=== PATIENT | female | born 1935 | race Caucasian/White ===

== ENCOUNTER 2021-09-24 11:13 | Emergency (ER) | payer MEDICARE, BC ==
[~2021-09-24] VITALS: Ht 149.9 cm; Wt 76.6 kg
[~2021-09-24 11:13] MED LIST: AMLO1TAB42 PO; ATOR10TA70 PO; DABI150C PO; METF500T PO; METO50TA16 PO; NITR0.4T48 SL
[2021-09-24 12:06] VITALS: BP 143/86
[2021-09-24 14:11] LABS: BASOPHILS % (AUTO) 0.2 % (0-1); EOSINOPHILS # (AUTO) 0.1 X10'3 (0-0.9); EOSINOPHILS % (AUTO) 1.2 % (0-6); HEMATOCRIT 34.4 % (35.0-45.0); HEMOGLOBIN 11.9 g/dl (12.0-16.0); LYMPHOCYTES # (AUTO) 1.3 X10'3 (1.1-4.8); LYMPHOCYTES % (AUTO) 13.9 % (21-51); MEAN CORPUSCULAR HEMOGLOBIN 32.1 PG (27.0-31.0); MEAN CORPUSCULAR HGB CONC 34.7 g/dL (33.0-36.5); MEAN CORPUSCULAR VOLUME 92.7 FL (78-98); MEAN PLATELET VOLUME 7.8 FL (7.4-10.4); MONOCYTES # (AUTO) 0.6 X10'3 (0-0.9); MONOCYTES % (AUTO) 6.9 % (2-12); NEUTROPHILS # (AUTO) 7.2 X10'3 (1.8-7.7); NEUTROPHILS % (AUTO) 77.8 % (42-75); PLATELET COUNT 327 X10'3 (140-440); RED BLOOD COUNT 3.71 X10'6 (4.20-5.60); RED CELL DISTRIBUTION WIDTH 13.2 % (11.5-14.5); WHITE BLOOD COUNT 9.3 X10'3 (4.5-11.0)
[2021-09-24 14:27] LABS: ALANINE AMINOTRANSFERASE 17 U/L (12-78); ALBUMIN 3.4 G/DL (3.4-5.0); ALBUMIN/GLOBULIN RATIO 0.8 (1.1-1.5); ALKALINE PHOSPHATASE 76 IU/L (46-116); ANION GAP 11 (8-16); ASPARTATE AMINO TRANSFERASE 16 U/L (10-37); BLOOD UREA NITROGEN 12 MG/DL (7-18); BUN/CREATININE RATIO 16.9 (6.6-38.0); CHLORIDE 104 MMOL/L (99-107); CREATININE 0.71 MG/DL (0.40-0.90); GLUCOSE 124 MG/DL (70-104); POTASSIUM 4.3 MMOL/L (3.5-5.1); SODIUM 141 MMOL/L (135-145); TOTAL CARBON DIOXIDE 25.6 MMOL/L (24-32); TOTAL PROTEIN 7.5 G/DL (6.4-8.2); eGFR 78 ML/MIN
[2021-09-24 14:35] LABS: MAGNESIUM 1.8 MG/DL (1.5-2.4)
[2021-09-24 14:37] LABS: BILIRUBIN,TOTAL 0.9 MG/DL (0.1-1.0)
[2021-09-24] MEDS ORDERED: AZIT-83 PO ×2 (15:53)
== END 2021-09-24 16:37 | disposition home or self-care (01) ==
LOC: ER 11:15
DX: J18.9 Pneumonia, unspecified organism (principal); R60.9 Edema, unspecified; R06.02 Shortness of breath; M79.602 Pain in left arm; I48.91 Unspecified atrial fibrillation; I10 Essential (primary) hypertension; E11.9 Type 2 diabetes mellitus without complications; Z87.440 Personal history of urinary (tract) infections; Z90.89 Acquired absence of other organs; Z98.890 Other specified postprocedural states; Z60.2 Problems related to living alone; Z88.0 Allergy status to penicillin; Z79.2 Long term (current) use of antibiotics; Z79.899 Other long term (current) drug therapy
CPT/HCPCS: 36415; 71045; 80053; 83735; 83880; 84484; 85025; 93005; 99285

== ENCOUNTER 2021-11-13 15:02 | Emergency (ER) | payer MEDICARE, BC ==
[~2021-11-13] VITALS: Ht 149.9 cm; Wt 72.0 kg
[~2021-11-13 15:02] MED LIST changes: +AZIT-83 PO
[2021-11-13 15:26] VITALS: BP 121/70
[2021-11-13 15:53] LABS: BASOPHILS % (AUTO) 0.2 % (0-1); EOSINOPHILS # (AUTO) 0.6 X10'3 (0-0.9); EOSINOPHILS % (AUTO) 5.5 % (0-6); HEMOGLOBIN 11.8 g/dl (12.0-16.0); LYMPHOCYTES # (AUTO) 0.8 X10'3 (1.1-4.8); LYMPHOCYTES % (AUTO) 7.3 % (21-51); MEAN CORPUSCULAR HEMOGLOBIN 31.1 PG (27.0-31.0); MEAN CORPUSCULAR HGB CONC 34.6 g/dL (33.0-36.5); MEAN CORPUSCULAR VOLUME 89.8 FL (78-98); MEAN PLATELET VOLUME 7.6 FL (7.4-10.4); MONOCYTES # (AUTO) 0.7 X10'3 (0-0.9); MONOCYTES % (AUTO) 6.4 % (2-12); NEUTROPHILS # (AUTO) 8.4 X10'3 (1.8-7.7); NEUTROPHILS % (AUTO) 80.6 % (42-75); PLATELET COUNT 326 X10'3 (140-440); RED BLOOD COUNT 3.79 X10'6 (4.20-5.60); RED CELL DISTRIBUTION WIDTH 14.6 % (11.5-14.5); WHITE BLOOD COUNT 10.4 X10'3 (4.5-11.0)
[2021-11-13 16:08] LABS: ALANINE AMINOTRANSFERASE 17 U/L (12-78); ALBUMIN 3.4 G/DL (3.4-5.0); ALBUMIN/GLOBULIN RATIO 0.8 (1.1-1.5); ALKALINE PHOSPHATASE 79 IU/L (46-116); ANION GAP 10 (8-16); ASPARTATE AMINO TRANSFERASE 16 U/L (10-37); BILIRUBIN,TOTAL 1.1 MG/DL (0.1-1.0); BLOOD UREA NITROGEN 14 MG/DL (7-18); BUN/CREATININE RATIO 16.3 (6.6-38.0); CALCIUM 8.8 MG/DL (8.5-10.1); CHLORIDE 98 MMOL/L (99-107); CREATININE 0.86 MG/DL (0.40-0.90); GLUCOSE 142 MG/DL (70-104); POTASSIUM 4.2 MMOL/L (3.5-5.1); SODIUM 132 MMOL/L (135-145); TOTAL CARBON DIOXIDE 24.2 MMOL/L (24-32); TOTAL PROTEIN 7.5 G/DL (6.4-8.2); eGFR 63 ML/MIN
[2021-11-13] MEDS ORDERED: acyclovir 200 MG capsule PO ONE (17:25)
[2021-11-13] MEDS ORDERED: ACYC-129 PO (17:25)
--- NOTE | 2021-11-13 17:55 | NUR ---
pharmacy to deliver zovirax capsule.
== END 2021-11-13 18:30 | disposition home or self-care (01) ==
LOC: ER 15:02
DX: B01.9 Varicella without complication (principal); J02.9 Acute pharyngitis, unspecified; R50.9 Fever, unspecified; R21 Rash and other nonspecific skin eruption; R00.0 Tachycardia, unspecified; I48.91 Unspecified atrial fibrillation; I10 Essential (primary) hypertension; E11.9 Type 2 diabetes mellitus without complications; Z87.440 Personal history of urinary (tract) infections; Z90.89 Acquired absence of other organs; Z98.890 Other specified postprocedural states; Z60.2 Problems related to living alone; Z88.0 Allergy status to penicillin; Z79.2 Long term (current) use of antibiotics; Z79.899 Other long term (current) drug therapy
CPT/HCPCS: 36415; 71045; 80053; 84145; 85025; 87040; 99284

== ENCOUNTER 2021-11-16 13:08 | Emergency (ER) | payer MEDICARE, BC ==
[~2021-11-16] VITALS: Ht 149.9 cm; Wt 72.0 kg
[~2021-11-16 13:08] MED LIST changes: +ACYC-129 PO
[2021-11-16] MEDS ORDERED: predniSONE 20 mg tablet PO ONE (14:35)
[2021-11-16] MEDS ORDERED: PRED20TA PO (14:52)
== END 2021-11-16 14:55 | disposition home or self-care (01) ==
LOC: ER 13:09
DX: R21 Rash and other nonspecific skin eruption (principal); I48.91 Unspecified atrial fibrillation; I10 Essential (primary) hypertension; E11.9 Type 2 diabetes mellitus without complications; Z87.440 Personal history of urinary (tract) infections; Z90.49 Acquired absence of other specified parts of digestive tract; Z88.0 Allergy status to penicillin; Z79.2 Long term (current) use of antibiotics; Z79.899 Other long term (current) drug therapy
CPT/HCPCS: 99283; J7512

== ENCOUNTER 2022-01-05 15:03 | Emergency (ER) | payer MEDICARE, BC ==
[~2022-01-05] VITALS: Ht 149.9 cm; Wt 76.8 kg
[~2022-01-05 15:03] MED LIST changes: -ACYC-129 PO
[2022-01-05 15:46] LABS: BASOPHILS % (AUTO) 0.2 % (0-1); EOSINOPHILS # (AUTO) 0.2 X10'3 (0-0.9); EOSINOPHILS % (AUTO) 2.1 % (0-6); HEMATOCRIT 33.5 % (35.0-45.0); HEMOGLOBIN 10.9 g/dl (12.0-16.0); LYMPHOCYTES # (AUTO) 1.1 X10'3 (1.1-4.8); MEAN CORPUSCULAR HEMOGLOBIN 29.3 PG (27.0-31.0); MEAN CORPUSCULAR HGB CONC 32.7 g/dL (33.0-36.5); MEAN CORPUSCULAR VOLUME 89.7 FL (78-98); MEAN PLATELET VOLUME 7.3 FL (7.4-10.4); MONOCYTES # (AUTO) 0.5 X10'3 (0-0.9); MONOCYTES % (AUTO) 6.7 % (2-12); NEUTROPHILS # (AUTO) 6.2 X10'3 (1.8-7.7); PLATELET COUNT 350 X10'3 (140-440); RED BLOOD COUNT 3.73 X10'6 (4.20-5.60); RED CELL DISTRIBUTION WIDTH 16.7 % (11.5-14.5)
[2022-01-05 16:00] LABS: ALANINE AMINOTRANSFERASE 22 U/L (12-78); ALBUMIN 3.4 G/DL (3.4-5.0); ALBUMIN/GLOBULIN RATIO 0.9 (1.1-1.5); ALKALINE PHOSPHATASE 80 IU/L (46-116); ANION GAP 10 (8-16); ASPARTATE AMINO TRANSFERASE 21 U/L (10-37); BILIRUBIN,TOTAL 0.8 MG/DL (0.1-1.0); BLOOD UREA NITROGEN 15 MG/DL (7-18); BUN/CREATININE RATIO 27.8 (6.6-38.0); CALCIUM 8.6 MG/DL (8.5-10.1); CHLORIDE 106 MMOL/L (99-107); CREATININE 0.54 MG/DL (0.40-0.90); GLUCOSE 106 MG/DL (70-104); POTASSIUM 4.3 MMOL/L (3.5-5.1); SODIUM 138 MMOL/L (135-145); TOTAL CARBON DIOXIDE 22.5 MMOL/L (24-32); TOTAL PROTEIN 7.1 G/DL (6.4-8.2); eGFR > 90 ML/MIN
--- NOTE | 2022-01-05 20:30 | NUR ---
pt presents to [facility] ed with complaining, " couldn't breath, and I have been coughing as well." the pt is a/o, nad, skin w/d, on monitor.
[2022-01-05] MEDS ORDERED: metoprolol tartrate 50mg tablet PO ONE (22:05)
[2022-01-06 01:26] VITALS: BP 134/78
== END 2022-01-05 22:30 | disposition home or self-care (01) ==
LOC: ER 15:04
DX: R06.00 Dyspnea, unspecified (principal); I10 Essential (primary) hypertension; R06.02 Shortness of breath; M79.89 Other specified soft tissue disorders; I48.91 Unspecified atrial fibrillation; E11.9 Type 2 diabetes mellitus without complications; Z87.440 Personal history of urinary (tract) infections; Z90.89 Acquired absence of other organs; Z98.890 Other specified postprocedural states; Z60.2 Problems related to living alone; Z88.0 Allergy status to penicillin; Z79.2 Long term (current) use of antibiotics; Z79.899 Other long term (current) drug therapy
CPT/HCPCS: 36415; 71045; 80053; 83880; 84484; 85025; 93005; 99285

== ENCOUNTER 2023-06-21 21:11 | Emergency (ER) | payer MEDICARE, BC ==
[~2023-06-21] VITALS: Ht 149.9 cm; Wt 100.0 kg
[~2023-06-21 21:11] MED LIST changes: +AZIT-164 PO; -AZIT-83 PO
[2023-06-21 21:18] VITALS: BP 136/57; PULSE 105; RESP 18; TEMP 98.2; O2SAT 97
[2023-06-21 21:33] LABS: BASOPHILS # (AUTO) 0.1 X10'3 (0-0.2); BASOPHILS % (AUTO) 0.7 % (0-1); EOSINOPHILS # (AUTO) 0.2 X10'3 (0-0.9); EOSINOPHILS % (AUTO) 2.2 % (0-6); HEMATOCRIT 33.3 % (35.0-45.0); HEMOGLOBIN 11.2 g/dl (12.0-16.0); LYMPHOCYTES # (AUTO) 0.5 X10'3 (1.1-4.8); LYMPHOCYTES % (AUTO) 4.8 % (21-51); MEAN CORPUSCULAR HEMOGLOBIN 30.3 PG (27.0-31.0); MEAN CORPUSCULAR HGB CONC 33.5 g/dL (33.0-36.5); MEAN CORPUSCULAR VOLUME 90.5 FL (78-98); MEAN PLATELET VOLUME 7.9 FL (7.4-10.4); MONOCYTES # (AUTO) 0.5 X10'3 (0-0.9); MONOCYTES % (AUTO) 4.5 % (2-12); NEUTROPHILS # (AUTO) 9.4 X10'3 (1.8-7.7); NEUTROPHILS % (AUTO) 87.8 % (42-75); PLATELET COUNT 271 X10'3 (140-440); RED BLOOD COUNT 3.68 X10'6 (4.20-5.60); RED CELL DISTRIBUTION WIDTH 15.2 % (11.5-14.5); WHITE BLOOD COUNT 10.7 X10'3 (4.5-11.0)
[2023-06-21 21:47] LABS: ALANINE AMINOTRANSFERASE 17 U/L (12-78); ALBUMIN 3.2 G/DL (3.4-5.0); ALBUMIN/GLOBULIN RATIO 0.9 (1.1-1.5); ALKALINE PHOSPHATASE 80 IU/L (46-116); ANION GAP 10 (8-16); ASPARTATE AMINO TRANSFERASE 15 U/L (10-37); BILIRUBIN,TOTAL 0.7 MG/DL (0.1-1.0); BLOOD UREA NITROGEN 11 MG/DL (7-18); BUN/CREATININE RATIO 11.7 (10.0-20.0); CALCIUM 8.7 MG/DL (8.5-10.1); CHLORIDE 102 MMOL/L (99-107); CREATININE 0.94 MG/DL (0.40-0.90); GLUCOSE 247 MG/DL (70-104); POTASSIUM 4.2 MMOL/L (3.5-5.1); SODIUM 135 MMOL/L (135-145); TOTAL CARBON DIOXIDE 22.6 MMOL/L (24-32); TOTAL PROTEIN 6.7 G/DL (6.4-8.2); eCRCL 29 ML/MIN; eGFR 56 ML/MIN
[2023-06-21 21:58] LABS: PRO BRAIN NATRIURETIC PEPTIDE 1509 PG/ML (0-450)
[2023-06-21 22:03] LABS: BURR CELLS FEW; ELLIPTOCYTES FEW; PLATELET ESTIMATE NORMAL; SCHISTOCYTES FEW
== END 2023-06-22 01:29 | disposition left against medical advice (07) ==
LOC: ER 21:13
DX: R06.02 Shortness of breath (principal); Z53.21 Procedure and treatment not carried out due to patient leaving prior to being seen by health care provider
CPT/HCPCS: 36415; 71045; 80053; 83880; 84484; 85008; 85025; 93005; 99281